=== PATIENT | female | born 1950 | race Caucasian/White ===

== ENCOUNTER → 2016-09-14 | Outpatient (CLI) | payer MEDICARE ==
[~2016-09-14] MED LIST: ASPI81TA21 PO; ATOR40TA PO; CALC600T57 PO; FISH500C PO; GABA-283 PO; OMEP20CA3 PO; TOPR25TA PO; TRAM50TA2 PO
--- NOTE | 2016-09-19 09:21 | DEXA ---
AP SPINE L1 - L4 1.111 -0.7 0.5 LT FEMUR TOTAL 0.864 -1.1 -0.2 RT FEMUR TOTAL 0.901 0.8 0.1 TOTAL BODY TOTAL OTHER DUAL FEMUR FRAX* ASSESSMENT Risk factors: Premature menopause. 10 year probability of fracture Major osteoporotic fracture 9.1 % Hip fracture 1.1 % COMMENTS: Normal bone densitometry of the spine. There is low bone density of the hips. The density of the spine has increased 2.4% since the initial exam on 2003. The spine density has increased 10.1% since the most recent exam on 09/16/2013. The density of the left neck decreased 8.1% since the initial exam on 2003. The density of the left neck increased 2.9% since the most recent exam on 2013. The density of the right neck decreased 5.7% since the initial exam on 2003. The density of the right neck decreased 3.7% since the most recent exam on 09/16. FOLLOW-UP: Recommendation for the next bone density exam: 2 years. OMAR
== END ==
LOC: M WHC 08:55
PROVIDERS: ATTEND Obstetrics & Gynecology
DX: Z13.820 Encounter for screening for osteoporosis (principal); M81.0 Age-related osteoporosis without current pathological fracture

== ENCOUNTER → 2017-01-11 | Outpatient (CLI) | payer MEDICARE ==
[~2017-01-11] MED LIST changes: -ATOR40TA PO; +ATOR40TA75 PO
--- NOTE | 2017-01-11 09:29 | REPMRS ---
Patient History The patient states she had a clinical breast exam in 08/21 Family history of unknown cancer in sister at age 60, colorectal cancer in sister at age 56, and colorectal cancer in mother at age 78. Benign excisional biopsy of the right breast, 1996. Digital Woman Screen Mammo: January 11, 2017 - Exam #: [id number] Bilateral CC and MLO view(s) were taken. Technologist: Radha Liang, Technologist Prior study comparison: January 11, 2016, bilateral digital mammo screening bilat, performed at [facility]. January 06, 2015, bilateral digital mammo screening bilat, performed at [facility]. April 08, 2013, digital bilateral screening mammo, performed at [facility]. FINDINGS: The breast tissue is almost entirely fat. There has been no change in the appearance of the mammogram from the prior studies. There is no interval development of dominant mass, architectural distortion, or clustered microcalcification typical of malignancy. ASSESSMENT: BI-RADS/ACR category 1 mammogram. Negative. Recommendation Routine screening mammogram of both breasts in 1 year (for women over age 40). This mammogram was interpreted with the aid of an FDA-approved computer-aided dectection system. Electronically Signed By: Justin Witt MD 01/11/17 0986
== END ==
LOC: M WHC 08:03
PROVIDERS: ATTEND Obstetrics & Gynecology
DX: Z12.31 Encounter for screening mammogram for malignant neoplasm of breast (principal)

== ENCOUNTER 2017-06-22 11:07 | Emergency (ER) | payer MEDICARE, OTHER | END 2017-06-22 14:45 | disposition home or self-care (01) | LOC: M ED 11:07 | DX: S13.4XXA Sprain of ligaments of cervical spine, initial encounter (principal); S46.911A Strain of unspecified muscle, fascia and tendon at shoulder and upper arm level, right arm, initial encounter; S40.011A Contusion of right shoulder, initial encounter; V43.52XA Car driver injured in collision with other type car in traffic accident, initial encounter; Y92.410 Unspecified street and highway as the place of occurrence of the external cause; Y93.9 Activity, unspecified; M47.812 Spondylosis without myelopathy or radiculopathy, cervical region; M25.761 Osteophyte, right knee; I10 Essential (primary) hypertension; E78.5 Hyperlipidemia, unspecified; K21.9 Gastro-esophageal reflux disease without esophagitis; M19.90 Unspecified osteoarthritis, unspecified site; Z95.5 Presence of coronary angioplasty implant and graft; Z79.82 Long term (current) use of aspirin; Z79.899 Other long term (current) drug therapy; Z91.040 Latex allergy status | CPT/HCPCS: 73030 ==

== ENCOUNTER → 2017-08-23 | Outpatient (REF) | payer OTHER, MEDICARE ==
[2017-08-23 14:03] LABS: BLOOD UREA NITROGEN 16 MG/DL (7-18)
[2017-08-23 14:03] LABS: CREATININE FOR GFR 0.69 MG/DL (0.55-1.30); GLOMERULAR FILTRATION RATE > 60.0 (>45)
== END ==
LOC: M LABDRAW1 10:38
DX: M54.5 Low back pain (principal)

== ENCOUNTER → 2018-01-15 | Outpatient (CLI) | payer MEDICARE, OTHER | LOC: M WHC 07:53 | DX: Z12.31 Encounter for screening mammogram for malignant neoplasm of breast (principal); Z92.89 Personal history of other medical treatment; Z80.0 Family history of malignant neoplasm of digestive organs | CPT/HCPCS: 77067 ==

== ENCOUNTER → 2019-01-16 | Outpatient (CLI) | payer MEDICARE, OTHER ==
[~2019-01-16] MED LIST changes: -GABA-283 PO; +GABA-845 PO; -OMEP20CA3 PO; +OMEP20CA4 PO
--- NOTE | 2019-01-16 09:26 | REPMRS ---
Patient History The patient states she had a clinical breast exam in 09/2018. Family history of colorectal cancer at age 78 in mother, colorectal cancer at age 56 in sister. Benign excisional biopsy of the right breast, 1996. No Hormone Replacement Therapy 3D TOMOSYNTHESIS WAS PERFORMED. The [facility] lifetime risk for breast cancer is 4.4%. Digital Woman Screen Mammo: January 16, 2019 - Exam #: [id number] Bilateral CC and MLO view(s) were taken. Technologist: Deisy Robert, Technologist Prior study comparison: January 15, 2018, bilateral digital woman screen mammo performed at [facility]. January 11, 2017, digital woman screen mammo performed at [facility]. FINDINGS: There are scattered fibroglandular densities. There has been no change in the appearance of the mammogram from the prior studies. There is a mild amount of residual fibroglandular tissue which is fairly symmetric. There is no interval development of dominant mass, architectural distortion, or clustered microcalcification suggestive of malignancy. Assessment: BI-RADS/ACR category 1 mammogram. Negative Mammogram. Recommendation Routine screening mammogram in 1 year (for women over age 40). This mammogram was interpreted with the aid of an FDA-approved computer-aided dectection system. Electronically Signed By: Reyes Celis MD 01/16/19 0999
== END ==
LOC: M WHC 07:51
PROVIDERS: ATTEND Obstetrics & Gynecology
DX: Z12.31 Encounter for screening mammogram for malignant neoplasm of breast (principal)

== ENCOUNTER → 2020-01-20 | Outpatient (CLI) | payer MEDICARE, OTHER ==
[~2020-01-20] MED LIST changes: +OMEP1CAP73 PO; -OMEP20CA4 PO
--- NOTE | 2020-01-20 11:40 | REPMRS ---
Patient History The patient states she had a clinical breast exam in August 2019. Family history of colorectal cancer at age 78 in mother, colorectal cancer at age 56 in sister. Benign excisional biopsy of the right breast, 1996. No Hormone Replacement Therapy Digital Woman Screen Mammo: January 20, 2020 - Exam #: [id number] Bilateral CC and MLO view(s) were taken. Technologist: Elda Rogers, Technologist Prior study comparison: January 16, 2019, bilateral digital woman screen mammo performed at [facility]. January 15, 2018, bilateral digital woman screen mammo performed at [facility]. January 11, 2017, digital woman screen mammo performed at [facility]. FINDINGS: The breast tissue is almost entirely fat. The Volpara volumetric breast density category is: A. There has been no change in the appearance of the mammogram from the prior studies. There is no interval development of dominant mass, architectural distortion, or grouped microcalcification typical of malignancy. 3-D tomosynthesis shows no additional findings. Assessment: BI-RADS/ACR category 1 mammogram. Negative Mammogram. Recommendation Routine screening mammogram of both breasts in 1 year (for women over age 40). This patient's Lifetime Breast Cancer RIsk is estimated at 4.2 %. This mammogram was interpreted with the aid of an FDA-approved computer-aided dectection system. Electronically Signed By: Justin Witt MD 01/20/20 1693
--- NOTE | 2020-01-30 15:34 | DEXA ---
AP SPINE L1 - L4 1.085 -0.9 0.8 LT FEMUR TOTAL 0.879 -1.0 0.5 LT NECK 0.788 -1.8 -0.1 RT FEMUR TOTAL 0.841 -1.3 0.2 RT NECK 0.757 -2.0 -0.3 TOTAL BODY TOTAL OTHER COMMENTS: Normal bone densitometry of the spine. There is low bone density of the hips. The density of the left hip has increased 1.7% since 09/14/2016. The density of the right hip has decreased 6.7% since 09/04/2016. The density of the spine is 0.0% since the initial exam on 10/19/2003. The decreased 2.3% since the most recent exam on 09/14/2016. FOLLOW-UP: Recommendation for the next bone density exam: 2 years. OMAR
== END ==
LOC: M WHC 09:20
PROVIDERS: ATTEND Obstetrics & Gynecology
DX: Z12.31 Encounter for screening mammogram for malignant neoplasm of breast (principal); Z13.820 Encounter for screening for osteoporosis; Z80.0 Family history of malignant neoplasm of digestive organs; Z86.018 Personal history of other benign neoplasm; M85.851 Other specified disorders of bone density and structure, right thigh; M85.852 Other specified disorders of bone density and structure, left thigh

== ENCOUNTER → 2020-08-13 | Outpatient (CLI) | payer MEDICARE, OTHER ==
--- NOTE | 2020-08-13 13:02 | REP ---
INDICATION: SACROILIITIS. COMPARISON: Lumbar spine MRI dated 08/27/2017 and plain film study dated 07/05/2017. TECHNIQUE: There are five views. FINDINGS: There are bilateral L5 pars interarticularis defects associated with grade 2 L5 anterolisthesis. This is unchanged. Vertebral body heights are normal. There is disc space narrowing and degenerative disc disease at every lumbar level, most advanced at L1-2 and L2-3. The pedicles and facets are unremarkable except for mild facet joint space narrowing at L4-5. Sacroiliac articulations are unremarkable. Is scoliosis convex left thoracolumbar junction, unchanged. IMPRESSION: There is no change from the comparison studies. Multilevel degenerative disc disease. Scoliosis convex left at the thoracolumbar junction. Bilateral L5 pars defects with grade 2 L5 anterolisthesis. <Electronically signed by Reyes Sainz > 08/13/20 [id number]
== END ==
LOC: M WUC 11:43
PROVIDERS: ATTEND Internal Medicine
DX: M46.1 Sacroiliitis, not elsewhere classified (principal)

== ENCOUNTER → 2021-01-20 | Outpatient (CLI) | payer MEDICARE, OTHER ==
[~2021-01-20] MED LIST changes: +GABA-283 PO; -GABA-845 PO
--- NOTE | 2021-01-20 08:57 | REPMRS ---
Patient History The patient states she had a clinical breast exam in September 2020. Family history of colorectal cancer at age 78 in mother, colorectal cancer at age 56 in sister. Benign excisional biopsy of the right breast, 1996. No Hormone Replacement Therapy Patient states no breast complaints today. Patient has signed MRS History Sheet. Digital Woman Screen Mammo: January 20, 2021 - Exam #: [id number] Bilateral CC and MLO view(s) were taken. Technologist: Radha Liang, Technologist Prior study comparison: January 20, 2020, bilateral digital woman screen mammo performed at [facility]. January 16, 2019, bilateral digital woman screen mammo performed at [facility]. FINDINGS: There are scattered fibroglandular densities. Screening. Digital screening (2D) mammography was performed bilaterally in the CC and MLO projections. Additionally, breast tomosynthesis (3D mammography) was performed bilaterally in the CC and MLO projections. Todays exam was compared to the prior exam/exams. By history, the patient has no complaints of a palpable breast abnormality or other significant breast complaints. The breasts are unchanged in size and shape. There are no alex-soft tissue densities or spiculated masses. There is no internal architectural distortion. Once again, stable benign appearing calcifications are seen.There are no suspicious alex-calcific clusters. Skin thickening or nipple retraction is not present. IMPRESSION: BI-RADS Category 2- Benign Findings. There is no evidence of malignant alteration of the breasts. Followup examination recommended in one year. The Volpara volumetric breast density category is B, there are scattered areas of fibroglandular densities. This mammogram was read with the assistance of [facility] [employer],an FDA approved computer aided detection system for mammography. The lifetime Tyrer-Cuzick score is 4 % Negative x-ray reports should not delay surgical consultation if a dominant or clinically suspicious mass is present. Not all breast cancers can be identified by mammography. Therefore, we recommend that you continue to perform regular breast self-examination and physical examination and then promptly contact your physician of any concerns or changes. Adenosis and dense breasts may obscure an underlying neoplasm. Assessment: BI-RADS/ACR category 2 mammogram. Benign Findings. Recommendation Routine screening mammogram of both breasts in 1 year. Electronically Signed By: Kyree Rader DO 01/20/21 0857
== END ==
LOC: M WHC 07:57
PROVIDERS: ATTEND Advanced Practice Midwife
DX: Z12.31 Encounter for screening mammogram for malignant neoplasm of breast (principal)

== ENCOUNTER → 2021-07-21 | Outpatient (CLI) | payer MEDICARE, OTHER ==
[2021-07-21 20:08] LABS: BASO % 0.4 % (0.0-1.0); EOS # 0.1 10^3/uL (0.0-0.5); EOS % 1.5 % (0.0-3.0); HEMATOCRIT 39.9 % (36.0-47.0); HEMOGLOBIN 13.5 g/dl (12.0-15.5); LYMPH # 1.9 10^3/uL (1.5-5.0); MEAN CORPUSCULAR HEMOGLOBIN 31.3 pg (27.0-33.0); MEAN CORPUSCULAR HGB CONC 33.8 g/dl (32.0-36.5); MEAN CORPUSCULAR VOLUME 92.4 fl (80.0-96.0); MONO # 0.4 10^3/uL (0.0-0.8); MONO % 7.5 % (2.0-8.0); NEUTROPHILS # 2.8 10^3/uL (1.5-8.5); NEUTROPHILS % 54.2 % (36.0-66.0); PLATELET COUNT, AUTOMATED 207 10^3/uL (150-450); RED BLOOD COUNT 4.32 10^6/uL (4.00-5.40); WHITE BLOOD COUNT 5.2 10^3/uL (4.0-10.0)
[2021-07-21 20:51] LABS: ERYTHROCYTE SEDIMENTATION RATE 6 mm/hr (0-30)
== END ==
LOC: M WUC 15:25
PROVIDERS: ATTEND Podiatrist
DX: M10.072 Idiopathic gout, left ankle and foot (principal)

== ENCOUNTER → 2022-01-23 | Outpatient (CLI) | payer MEDICARE, OTHER | LOC: M WHC 10:45 | PROVIDERS: ATTEND Obstetrics & Gynecology | DX: Z12.31 Encounter for screening mammogram for malignant neoplasm of breast (principal); Z13.820 Encounter for screening for osteoporosis; M85.88 Other specified disorders of bone density and structure, other site; M85.851 Other specified disorders of bone density and structure, right thigh; M85.852 Other specified disorders of bone density and structure, left thigh ==

== ENCOUNTER → 2022-04-13 | Outpatient (CLI) | payer MEDICARE, OTHER ==
[2022-04-13 09:50] LABS: HEMATOCRIT 41.4 % (36.0-47.0); HEMOGLOBIN 13.9 g/dl (12.0-15.5); MEAN CORPUSCULAR HGB CONC 33.6 g/dl (32.0-36.5); MEAN CORPUSCULAR VOLUME 92.2 fl (80.0-96.0); PLATELET COUNT, AUTOMATED 198 10^3/uL (150-450); RED BLOOD COUNT 4.49 10^6/uL (4.00-5.40); WHITE BLOOD COUNT 5.1 10^3/uL (4.0-10.0)
[2022-04-13 10:55] LABS: BLOOD UREA NITROGEN 19 MG/DL (9-23); CALCIUM LEVEL 9.4 MG/DL (8.3-10.6); CARBON DIOXIDE LEVEL 30 MMOL/L (20-31); CHLORIDE LEVEL 106 MMOL/L (98-107); CREATININE FOR GFR 0.86 MG/DL (0.55-1.30); GLOMERULAR FILTRATION RATE > 60.0 (>39); GLUCOSE, FASTING 100 MG/DL (74-106); POTASSIUM SERUM 4.4 MMOL/L (3.5-5.1); SODIUM LEVEL 143 MMOL/L (136-145)
== END ==
LOC: M LAB 08:45
PROVIDERS: ATTEND Physician Assistant
DX: I25.10 Atherosclerotic heart disease of native coronary artery without angina pectoris (principal); I48.0 Paroxysmal atrial fibrillation

== ENCOUNTER 2023-01-07 01:52 | Emergency (ER) | payer MEDICARE, OTHER ==
[~2023-01-07] VITALS: Ht 152.4 cm; Wt 82.5 kg
[~2023-01-07 01:52] MED LIST changes: -GABA-283 PO; +GABA-284 PO
[2023-01-07 02:33] LABS: BASO % 0.3 % (0.0-1.0); EOS % 0.3 % (0.0-3.0); HEMATOCRIT 40.1 % (36.0-47.0); HEMOGLOBIN 13.6 g/dl (12.0-15.5); LYMPH # 1.1 10^3/uL (1.5-5.0); LYMPH % 12.3 % (24.0-44.0); MEAN CORPUSCULAR HEMOGLOBIN 31.1 pg (27.0-33.0); MEAN CORPUSCULAR HGB CONC 33.9 g/dl (32.0-36.5); MEAN CORPUSCULAR VOLUME 91.8 fl (80.0-96.0); MONO # 0.3 10^3/uL (0.0-0.8); MONO % 3.5 % (2.0-8.0); NEUTROPHILS # 7.3 10^3/uL (1.5-8.5); NEUTROPHILS % 83.5 % (36.0-66.0); PLATELET COUNT, AUTOMATED 169 10^3/uL (150-450); RED BLOOD COUNT 4.37 10^6/uL (4.00-5.40); WHITE BLOOD COUNT 8.8 10^3/uL (4.0-10.0)
[2023-01-07 03:17] LABS: BILIRUBIN,DIRECT 0.3 MG/DL (<0.4); BILIRUBIN,TOTAL 0.9 MG/DL (0.3-1.2); TOTAL PROTEIN 6.5 G/DL (5.7-8.2)
[2023-01-07] MEDS ORDERED: MAALOX 30 ML SUSP *UDC PO ONE (07:50)
[2023-01-07] MEDS ORDERED: ISOVUE-370 76% 100ML VIAL As Ordered ONE (08:19)
[2023-01-07 08:50] LABS: CK-MB VALUE MASS < 1.0 NG/ML (<3.6)
[2023-01-07 08:52] LABS: CPK CREATINE PHOSPHOKINASE 62 U/L (34-145); MB/CK RELATIVE INDEX 1.61 (< OR =4)
[2023-01-07] MEDS ORDERED: MORPHINE 2 MG/ML 1ML VIAL IV ONE (09:45)
[2023-01-07] MEDS ORDERED: ONDANSETRON 4MG 2ML VIAL IV ONE (09:45)
[2023-01-07] MEDS ORDERED: PIPERACILLIN/TAZOBACTAM SOD 3.375 GM in D5W MINI-BAG PLUS 50 ML IV ONE (10:10)
[2023-01-07] MEDS ORDERED: NS 1,000 ML IV SCH (10:10)
[2023-01-07 10:32] LABS: RSV AMPLIFICATION NEGATIVE (NEGATIVE)
[2023-01-07 11:58] VITALS: TEMP 97.8
[2023-01-07 13:13] VITALS: BP 134/78; O2SAT 99
== END 2023-01-07 13:28 | disposition short-term general hospital (02) ==
LOC: M ED 01:52
DX: K56.2 Volvulus (principal); I10 Essential (primary) hypertension; K21.9 Gastro-esophageal reflux disease without esophagitis; Z86.79 Personal history of other diseases of the circulatory system; Z91.040 Latex allergy status; Z79.82 Long term (current) use of aspirin; Z79.83 Long term (current) use of bisphosphonates; Z79.899 Other long term (current) drug therapy
CPT/HCPCS: 71046; 74177; 80047; 80076; 82550; 82553; 83605; 83690; 84484; 85025; 87631; 93005; 93041; 96361; 96374; 96375; 99284; J2405; Q9967

== ENCOUNTER → 2023-02-05 | Outpatient (CLI) | payer MEDICARE, OTHER | LOC: M PLAIMG 09:43 | PROVIDERS: ATTEND Internal Medicine | DX: L03.311 Cellulitis of abdominal wall (principal) ==

== ENCOUNTER → 2023-02-13 | Outpatient (CLI) | payer MEDICARE, OTHER | LOC: M WHC 07:39 | PROVIDERS: ATTEND Obstetrics & Gynecology | DX: Z12.31 Encounter for screening mammogram for malignant neoplasm of breast (principal); N63.14 Unspecified lump in the right breast, lower inner quadrant ==

== ENCOUNTER → 2023-02-28 | Outpatient (CLI) | payer MEDICARE, OTHER | LOC: M WHC 08:59 | PROVIDERS: ATTEND Obstetrics & Gynecology | DX: Z12.31 Encounter for screening mammogram for malignant neoplasm of breast (principal); N63.14 Unspecified lump in the right breast, lower inner quadrant | CPT/HCPCS: 76642; 77065; G0279 ==

== ENCOUNTER → 2023-11-14 | Outpatient (CLI) | payer MEDICARE, OTHER | LOC: M WHC 10:01 | PROVIDERS: ATTEND Advanced Practice Midwife | DX: R92.2 Inconclusive mammogram (principal) | CPT/HCPCS: 77065; G0279 ==

== ENCOUNTER → 2024-05-19 | Outpatient (CLI) | payer MEDICARE, OTHER | LOC: M WHC 08:43 | PROVIDERS: ATTEND Obstetrics & Gynecology | DX: Z12.31 Encounter for screening mammogram for malignant neoplasm of breast (principal); M81.0 Age-related osteoporosis without current pathological fracture ==